=== PATIENT | female | born 1980 | race Caucasian/White ===

== ENCOUNTER 2025-06-08 21:21 | Inpatient (IN) | payer SELFPAY ==
[~2025-06-08] VITALS: Ht 170.2 cm; Wt 106.6 kg
[2025-06-08 21:43] VITALS: O2SAT 98
[2025-06-08 23:17] LABS: BASOPHILS % 0.5 % (0.0-2.0); EOSINOPHILS % 2.7 % (0.0-5.0); HEMATOCRIT. 37.3 % (36.0-48.0); HEMOGLOBIN. 12.3 g/dL (12.0-16.0); LYMPHOCYTES % 22.7 % (20.0-50.0); MEAN PLATELET VOLUME 7.2 fl (7.4-10.4); MONOCYTES % 7.2 % (2.0-8.0); NEUTROPHILS % 66.9 % (40.0-76.0); PLATELET 348 x1000/uL (130-400); RED BLOOD CELL COUNT 4.55 mill/uL (4.2-5.4); RED CELL DISTRIBUTION WIDTH 15.4 % (11.6-14.6)
[2025-06-08 23:36] LABS: CREATININE 0.8 mg/dL (0.6-1.0); UREA NITROGEN BLOOD 9 mg/dL (9-23)
[2025-06-08 23:37] LABS: ETHANOL BLOOD < 10 mg/dL (<10); TROPONIN I HIGH SENSITIVITY < 4 ng/L (3.0-34)
[2025-06-08 23:43] LABS: HCG SCREEN NEGATIVE
[2025-06-09 00:14] LABS: INR 1.0
[2025-06-09] MEDS: IOHEXOL-350 100 ML BOTTLE ONE (00:49)
[2025-06-09 02:00] VITALS: BP 133/81; PULSE 89; RESP 18; TEMP 36.7516
[2025-06-09 04:00] VITALS: BP 105/61; PULSE 96; RESP 17; TEMP 36.4; O2SAT 97
[2025-06-09] MEDS ORDERED: ACETAMINOPHEN 325MG TABLET PO PRN ×2 (05:00)
[2025-06-09] MEDS ORDERED: MAGNESIUM/ALUMINUM HYDROXIDE/SIMETHICONE 30ML UDC PO PRN (05:00)
[2025-06-09] MEDS ORDERED: IPRATROPIUM/ALBUTEROL 0.5-3(2.5)MG/3ML NEB NEB PRN (05:00)
[2025-06-09] MEDS ORDERED: HYDROCODONE/ACETAMINOPHEN 5/325MG TABLET PO PRN (05:00)
[2025-06-09] MEDS ORDERED: CLONIDINE 0.1MG TABLET PO PRN (05:00)
[2025-06-09] MEDS ORDERED: GUAIFENESIN 200MG/10ML SUGAR FREE UDC PO PRN (05:00)
[2025-06-09] MEDS ORDERED: ONDANSETRON HCL 4MG/2ML INJ IV PRN (05:00)
[2025-06-09] MEDS ORDERED: NALOXONE HCL 0.4MG/ML VIAL IV PRN (05:15)
[2025-06-09] MEDS: ENOXAPARIN 120MG/0.8ML SYR SUBCUT SCH (05:20)
[2025-06-09 08:00] VITALS: BP 105/61; PULSE 86; RESP 18; TEMP 36.4; O2SAT 99
[2025-06-09] MEDS: PANTOPRAZOLE SODIUM 40 MG/VIAL IV SCH (10:00)
[2025-06-09 12:00] VITALS: BP 113/52; PULSE 92; RESP 17; TEMP 36.4; O2SAT 98
[2025-06-09 16:00] VITALS: BP 114/69; PULSE 81; RESP 19; TEMP 36.8; O2SAT 99
[2025-06-09 16:38] LABS: BASOPHILS % 0.4 % (0.0-2.0); EOSINOPHILS % 4.5 % (0.0-5.0); HEMATOCRIT. 34.0 % (36.0-48.0); HEMOGLOBIN. 11.0 g/dL (12.0-16.0); LYMPHOCYTES % 22.4 % (20.0-50.0); MEAN PLATELET VOLUME 7.5 fl (7.4-10.4); MONOCYTES % 7.4 % (2.0-8.0); NEUTROPHILS % 65.3 % (40.0-76.0); PLATELET 322 x1000/uL (130-400); RED BLOOD CELL COUNT 4.08 mill/uL (4.2-5.4); RED CELL DISTRIBUTION WIDTH 15.2 % (11.6-14.6)
[2025-06-09 16:54] LABS: CREATININE 0.7 mg/dL (0.6-1.0); TRIGLYCERIDE 216 mg/dL (0-150); UREA NITROGEN BLOOD 8 mg/dL (9-23)
[2025-06-09 16:55] LABS: LDL CHOLESTEROL 143 mg/dL (5-100)
[2025-06-09 16:56] LABS: ASPARTATE AMINOTRANSFERASE 19 IU/L (<34); BILIRUBIN DIRECT 0.1 mg/dL (<=3.0); PHOSPHORUS 3.1 mg/dL (2.5-4.9)
[2025-06-09 16:57] LABS: BILIRUBIN TOTAL 0.4 mg/dL (0.1-1.0); PROTEIN TOTAL 6.8 g/dL (6.0-8.3)
[2025-06-09 20:00] VITALS: BP 114/60; PULSE 83; RESP 18; TEMP 36.6; O2SAT 100
[2025-06-10] VITALS: BP 108/51; PULSE 86; RESP 18; TEMP 36.9; O2SAT 100
[2025-06-10 04:00] VITALS: BP 102/63; PULSE 68; RESP 18; TEMP 36.4; O2SAT 100
[2025-06-10 08:00] VITALS: BP 122/62; PULSE 79; RESP 18; TEMP 36.5; O2SAT 100
[2025-06-10] MEDS ORDERED: DEXTROSE 50% WATER 50ML SYRINGE IV PRN (08:15)
[2025-06-10 08:36] LABS: *AMPHETAMINES SCREEN URINE NEGATIVE (NEGATIVE); *BARBITURATES SCREEN URINE NEGATIVE (NEGATIVE); *BENZODIAZEPINES SCREEN URINE NEGATIVE (NEGATIVE); *COCAINE SCREEN URINE NEGATIVE (NEGATIVE); CANNABINOID URINE SCREEN NEGATIVE (NEGATIVE); METHADONE URINE SCREEN NEGATIVE (NEGATIVE); OPIATES URINE SCREEN NEGATIVE (NEGATIVE); PHENCYCLIDINE URINE SCREEN NEGATIVE (NEGATIVE)
[2025-06-10 08:37] LABS: ECSTASY MDMA SCREEN URINE NEGATIVE (NEGATIVE)
[2025-06-10 09:47] LABS: CLARITY URINE CLEAR (CLEAR); COLOR URINE YELLOW (YELLOW); SPECIFIC GRAVITY URINE 1.018 (1.005-1.030)
[2025-06-10 09:48] LABS: BACTERIA URINE 2+; GLUCOSE URINE NEGATIVE (NEGATIVE); KETONES URINE NEGATIVE (NEGATIVE); LEUKOCYTE ESTERASE URINE NEGATIVE (NEGATIVE); NITRITE URINE NEGATIVE (NEGATIVE); OCCULT BLOOD URINE TRACE (NEGATIVE); PH URINE 5.5 (4.5-8.0); PROTEIN URINE NEGATIVE (NEGATIVE); SQUAMOUS EPITHELIAL CELL URINE 2+ /lpf (RARE/1+); UROBILINOGEN URINE 0.2 E.U./dL (0.2-1.0); YEAST URINE NONE SEEN
[2025-06-10] MEDS ORDERED: APIX5TAB MT (11:17)
[2025-06-10 12:00] VITALS: BP 127/67; PULSE 79; RESP 18; TEMP 36.6; O2SAT 98
[2025-06-10] MEDS: INSULIN LISPRO 100 UNITS/ML SUBCUT SCH (12:15)
[2025-06-10] MEDS: BLOOD SUGAR DIAGNOSTIC STRIP TEST SCH (12:37)
[2025-06-10] MEDS ORDERED: LIP40 MT (15:00)
[2025-06-10] MEDS ORDERED: LIP40 PO (15:06)
[2025-06-10] MEDS ORDERED: APIX5TAB PO (15:06)
[2025-06-10 15:07] VITALS: BP 131/78; PULSE 86; RESP 18; TEMP 98.5
[2025-06-10 16:00] VITALS: BP 131/78; PULSE 73; RESP 18; TEMP 36.9; O2SAT 97
[2025-06-10] MEDS ORDERED: ATORVASTATIN CALCIUM 40MG TABLET PO SCH (21:00)
== END 2025-06-10 17:51 | disposition home or self-care (01) | DRG 197 ==
LOC: ER 21:21 → 5WST 06-09 00:27 → EDBEDREQTM 06-09 00:31 → EDBEDREQDT 06-09 00:31 → EDBEDREQ 06-09 00:31 → ENRESERV 06-09 00:43
PROVIDERS: ADMIT Internal Medicine; ATTEND Internal Medicine
DX: I82.411 Acute embolism and thrombosis of right femoral vein (principal); E66.9 Obesity, unspecified; Z68.36 Body mass index [BMI] 36.0-36.9, adult; E78.5 Hyperlipidemia, unspecified; R00.0 Tachycardia, unspecified; Z74.09 Other reduced mobility; Z86.718 Personal history of other venous thrombosis and embolism; Z98.891 History of uterine scar from previous surgery; Z80.49 Family history of malignant neoplasm of other genital organs
CPT/HCPCS: 36415; 71045; 71275; 80048; 80061; 80076; 80305; 80320; 81003; 82306; 82962; 83036; 83735; 83880; 84100; 84484; 84703; 85025; 85379; 93005; 93970; 99291; J1650; J1815; J2470; Q9967; G0480